=== PATIENT | male | born 1990 | race Hispanic/Latino ===

== ENCOUNTER 2020-05-19 08:16 | Emergency (ER) | payer OTHER ==
[~2020-05-19] VITALS: Ht 185.4 cm; Wt 96.6 kg
[2020-05-19 08:17] VITALS: BP 137/85
[2020-05-19] MEDS ORDERED: NAPR-837 PO (08:37)
== END 2020-05-19 08:48 | disposition home or self-care (01) ==
LOC: M ED 08:16
DX: M77.01 Medial epicondylitis, right elbow (principal); M77.02 Medial epicondylitis, left elbow